=== PATIENT | female | born 1955 | race African-American/Black ===

== ENCOUNTER 2020-07-30 01:06 | Emergency (ER) | payer BC ==
[~2020-07-30] VITALS: Ht 162.6 cm; Wt 107.0 kg
[~2020-07-30 01:06] MED LIST: ASPI-1079 PO; ATOR20TA65 PO; DOCU-138 PO; NITR12SP4 PO; OLME20TA13; PRAS10TA6; RABE20TA17; SOLI10TA
[2020-07-30] MEDS ORDERED: ACETAMINOPHEN 325MG TABLET PO ONE (02:00)
[2020-07-30] MEDS ORDERED: MORPHINE SULFATE 4 MG/ML CPJ (NOT FOR IM USE) IV ONE (02:00)
[2020-07-30] MEDS ORDERED: ONDANSETRON HCL 4MG/2ML INJ IV ONE (02:00)
[2020-07-30] MEDS ORDERED: GABAPENTIN 300MG CAPSULE PO ONE (02:00)
[2020-07-30 03:13] LABS: HEMATOCRIT. 39.8 % (36.0-48.0); HEMOGLOBIN. 12.8 g/dL (12.0-16.0); LYMPHOCYTES % 16.1 % (20.0-50.0); MEAN CORPUSCULAR HEMOGLOBIN 26.8 pg (28.0-32.0); MEAN CORPUSCULAR VOLUME 83.1 fL (81.0-99.0); MEAN PLATELET VOLUME 8.6 fl (7.4-10.4); NEUTROPHILS % 68.9 % (40.0-76.0); PLATELET 220 x1000/uL (130-400); RED BLOOD CELL COUNT 4.79 mill/uL (4.2-5.4); RED CELL DISTRIBUTION WIDTH 16.8 % (11.6-14.6)
[2020-07-30 03:17] LABS: CHLORIDE 106 mEq/L (98-107)
[2020-07-30 03:26] LABS: CLARITY URINE CLEAR (CLEAR); COLOR URINE YELLOW (YELLOW); KETONES URINE NEGATIVE (NEGATIVE); LEUKOCYTE ESTERASE URINE TRACE (NEGATIVE); NITRITE URINE POSITIVE (NEGATIVE); OCCULT BLOOD URINE 1+ (NEGATIVE); PH URINE 5.5 (4.5-8.0); PROTEIN URINE NEGATIVE (NEGATIVE)
[2020-07-30] MEDS ORDERED: NITROFURANTOIN 100MG M/M CAPSULE PO ONE (03:30)
[2020-07-30] MEDS ORDERED: GABA-532 MT (03:32)
[2020-07-30] MEDS ORDERED: VALA100044 MT (03:32)
[2020-07-30] MEDS ORDERED: NITR-87 MT (03:32)
[2020-07-30 04:00] VITALS: BP 135/84
[2020-07-30] MEDS ORDERED: VALACYCLOVIR HCL 500MG TABLET PO SCH (09:00)
== END 2020-07-30 04:00 | disposition home or self-care (01) ==
LOC: ER 01:06
DX: B02.9 Zoster without complications (principal); R51.9 Headache, unspecified; N39.0 Urinary tract infection, site not specified; I11.9 Hypertensive heart disease without heart failure; M19.90 Unspecified osteoarthritis, unspecified site; Z88.5 Allergy status to narcotic agent
CPT/HCPCS: 36415; 70450; 80053; 81003; 85025; 93005; 96374; 96375; 99285; J2270; J2405

== ENCOUNTER 2023-01-25 01:48 | Emergency (ER) | payer BC, MEDICARE ==
[~2023-01-25] VITALS: Ht 165.1 cm; Wt 96.3 kg
[~2023-01-25 01:48] MED LIST changes: +GABA-532 MT; +NITR-87 MT; +VALA100044 MT
[2023-01-25 02:19] VITALS: BP 152/78; O2SAT 99
[2023-01-25] MEDS ORDERED: ACETAMINOPHEN 325MG TABLET PO ONE (03:30)
[2023-01-25] MEDS ORDERED: GABA-529 MT (05:45)
[2023-01-25 06:03] VITALS: PULSE 78; RESP 16; TEMP 98.1
== END 2023-01-25 06:04 | disposition home or self-care (01) ==
LOC: ER 01:48
DX: M25.561 Pain in right knee (principal); I10 Essential (primary) hypertension; Z00.00 Encounter for general adult medical examination without abnormal findings; Z88.5 Allergy status to narcotic agent; Z79.899 Other long term (current) drug therapy
CPT/HCPCS: 73560; 93971; 99284